=== PATIENT | male | born 1960 | race African-American/Black ===

== ENCOUNTER → 2016-06-24 | Emergency (ER) | payer MEDICAID, OTHER ==
[~2016-06-24] VITALS: Ht 180.3 cm; Wt 59.0 kg
[~2016-06-24] MED LIST: CEPHALEXIN500 MG ORAL; GUAIFENESIN AC473 ML ORAL; TYLENOL EXTRA500 MG ORAL; VENTOLIN HFA18 GM INH
--- NOTE | 2016-06-24 10:52 | Emergency Room Report ---
History of Present Illness General Chief Complaint: Upper Respiratory Illness Source: Patient Present Illness HPI 55 YO M + smoker, not asthmatic, presents from [facility] with 1 week dry cough. Denies chest pain, SOB, fever/chills. Denies recent hospitalization. Taking cough medicine but ran out. Also requesting re-wrap of left leg ulcer. Denies warmth, rash, swelling to area. EMR indicates known history of venous stasis ulcer. Allergies: Coded Allergies: No Known Allergies (Unverified , 04/07/16) Patient History Past Medical History: other - PVD? Past Surgical History: none Pertinent Family History: none Social History: Reports: smoking Immunizations: UTD Reviewed Nursing Documentation: PMH: Agreed, PSxH: Agreed Nursing Documentation-PMH Hx Cardiac Problems: No Hx Hypertension: No Hx Pacemaker: No Hx Asthma: No Hx COPD: No Hx Diabetes: No Hx Cancer: No Hx Gastrointestinal Problems: No Hx Dialysis: No History Of Psychiatric Problem: Yes - schizoprenia Hx Neurological Problems: No Hx Cerebrovascular Accident: No Hx Seizures: No Review of Systems All Other Systems: negative except mentioned in HPI Physical Exam Vital Signs Date Time Temp Pulse Resp B/P Pulse Ox O2 Delivery O2 Flow Rate FiO2 06/24/16 09:31 98.1 66 16 120/70 98 Room Air Sp02 EP Interpretation: reviewed, normal General Appearance: normal inspection, well appearing, no apparent distress, alert, GCS 15, non-toxic, other - Asking to go outside and smoke Head: normocephalic, atraumatic Eyes: bilateral eye EOMI, bilateral eye PERRL ENT: normal ENT inspection, hearing grossly normal, normal voice Neck: normal inspection, full range of motion, supple, no bony tend Respiratory: normal inspection, lungs clear, normal breath sounds, no rhonchi, no respiratory distress, no retraction, no accessory muscle use, no wheezing, speaking full sentences Cardiovascular #1: regular rate, rhythm, no edema Gastrointestinal: normal inspection, normal bowel sounds, non tender, soft, no guarding, no hernia Genitourinary: no CVA tenderness Musculoskeletal: normal inspection, back normal, normal range of motion, Christopher' s Sign negative Neurologic: normal inspection, alert, oriented x3, responsive, teasel setter III-XII nml as tested, motor strength/tone normal, speech normal Psychiatric: normal inspection, judgement/insight normal, mood/affect normal Skin: other - Shiny, hairless lower extremities. 2cm ulcer to lateral aspect of left leg. No surrounding erythema, palpable warmth or cellulitis Medical Decision Making Diagnostic Impression: Primary Impression: Cough Additional Impression: Venous ulcer of left leg Cough: VSS. Afebrile. Lungs CTAB. + smoker. Rx Ventolin, Cough syrup, PMD followup. Low suspicion for PNA, other problem requiring further lab/imaging/ evaluation or admission. Advised to STOP smoking Left leg ulcer: No sign of infection. Re-wrapped leg. Given additional bandages. Last Vital Signs Date Time Temp Pulse Resp B/P Pulse Ox O2 Delivery O2 Flow Rate FiO2 06/24/16 09:38 78 16 06/24/16 09:31 98.1 120/70 98 Room Air Status: improved Disposition: HOME, SELF-CARE Condition: Improved Scripts Guaifenesin/Codeine Phosphate (GUAIFENESIN AC COUGH SYRUP) 473 Ml Liquid 1 TSP ORAL Q8H Y for For Cough, #473 ML 0 Refills Prov: DOMINGO SIMEON M.D. 06/24/16 Albuterol Sulfate (VENTOLIN HFA) 18 Gm Hfa.aer.ad 2 PUFFS INH EVERY 6 HOURS for For Cough, #18 GM 0 Refills Prov: DOMINGO SIMEON M.D. 06/24/16 Patient Instructions: Upper Respiratory Infection, Adult Additional Instructions: - Use albuterol inhaler as needed for cough during the day - Cough medicine at night DOMINGO SIMEON M.D. Jun 24, 2016 10:52
[2016-06-24 11:09] VITALS: BP 125/71
== END | disposition home or self-care (01) ==
LOC: EDUNIT# 09:29 → EDBD 09:41 → EMR 11:18
DX: R05 Cough (principal); L97.929 Non-pressure chronic ulcer of unspecified part of left lower leg with unspecified severity; I83.029 Varicose veins of left lower extremity with ulcer of unspecified site; F20.9 Schizophrenia, unspecified; F17.200 Nicotine dependence, unspecified, uncomplicated
CPT/HCPCS: 99284